=== PATIENT | male | born 1950 | race Caucasian/White ===

== ENCOUNTER 2020-06-22 03:35 | Inpatient (IN) ==
[2020-06-22] MEDS ORDERED: ATROPINE 0.4 MG/1 ML VIAL IV ONE (03:44)
[2020-06-22] MEDS ORDERED: ATROPINE 0.4 MG/1 ML VIAL ONE (03:45)
[2020-06-22] MEDS ORDERED: ATROPINE 1 MG/10 ML SYRINGE IV STA (03:55)
[2020-06-22 04:02] LABS: Basophils # 0.1 10*3/uL (0.0-0.2); Basophils % 0.5 % (0.0-0.8); Eosinophils # 0.1 10*3/uL (0.0-0.87); Eosinophils % 0.9 % (0.00-10.9); Hematocrit 39.8 VOL% (42.0-52.0); Hemoglobin 12.8 GM/DL (14.0-18.0); Immature Granulocytes % 1.2 %; Immature Granulocytes Absolute 0.16 #; Lymphocytes # 1.2 10*3/uL (1.4-4.0); Lymphocytes % 8.7 % (21.2-54.2); Mean Corpuscular HGB Conc 32.2 GM/DL (32-36); Mean Corpuscular Volume 91.7 FL (87-102); Mean Platelet Volume 12.2 FL (9.6-12.0); Monocytes % 8.8 % (1.7-12.7); NRBC # 0.02 10*3/uL; Neutrophils % 79.9 % (38.7-73.9); Platelet Count 170 T/CUMM (130-400); Red Blood Count 4.34 MC/CUMM (3.8-5.5); Red Cell Distribution Width 14.3 % (9.3-17.3); White Blood Count 13.5 T/CUMM (4-12)
[2020-06-22] MEDS ORDERED: MORPHINE 4 MG/1 ML VIAL IV STA (04:06)
[2020-06-22] MEDS ORDERED: MIDAZOLAM 2 MG/2 ML VIAL IV STA (04:06)
[2020-06-22] MEDS ORDERED: ONDANSETRON 4 MG/2 ML VIAL IV STA (04:07)
[2020-06-22 04:09] LABS: INR 1.2; PT Patient Result 12.6 SECS (9.8-11.9)
[2020-06-22 04:41] LABS: Albumin 3.3 G/DL (3.4-5.0); Bilirubin,Total 0.5 MG/DL (0.2-1.0); Calcium 8.8 MG/DL (8.5-10.1); Osmolality,Calculated 296.5 MOS/KG (273-304); Potassium 5.9 MMOL/L (3.5-5.1); Total Protein 6.5 G/DL (6.4-8.3)
[2020-06-22] MEDS ORDERED: DEXTROSE 50% 25 GM/50 ML VIAL IV STA (05:09)
[2020-06-22] MEDS ORDERED: SODIUM CHLORIDE 0.9% 1,000 ML IV STA (05:10)
[2020-06-22] MEDS ORDERED: INSULIN REGULAR 100 UNIT/ML IV STA (05:10)
[2020-06-22] MEDS ORDERED: CALCIUM GLUCONATE 1,000 MG in SODIUM CHLORIDE 0.9% 100 ML IV ONE ×3 (05:10→10:00)
[2020-06-22] MEDS ORDERED: DEXTROSE 50% 25 GM/50 ML SYRINGE IV ONE (05:17)
[2020-06-22] MEDS ORDERED: LIDOCAINE 1% 20 ML VIAL ONE (05:57)
[2020-06-22] MEDS ORDERED: MIDAZOLAM 2 MG/2 ML VIAL ONE (06:06)
[2020-06-22] MEDS ORDERED: fentaNYL 100 MCG/2 ML VIAL ONE (06:07)
[2020-06-22] MEDS ORDERED: GLUCAGON 1 MG VIAL IM PRN ×2 (06:48→09:29)
[2020-06-22] MEDS ORDERED: MAGNESIUM SULF RIDER 4 GM in PREMIX 1 EACH IV PRN (06:48)
[2020-06-22] MEDS ORDERED: DEXTROSE 50% 25 GM/50 ML VIAL IV PRN ×2 (06:48→09:29)
[2020-06-22] MEDS ORDERED: MAGNESIUM SULF RIDER 2 GM in PREMIX 1 EACH IV PRN (06:48)
[2020-06-22] MEDS: SODIUM CHLORIDE 0.9% 1,000 ML IV SCH ×5 (07:44→19:39)
[2020-06-22 09:07] LABS: Troponin I < 0.015 NG/ML (0.00-0.045)
[2020-06-22] MEDS ORDERED: SODIUM POLYSTYRENE SULFATE 15 GM/60 ML BOTTLE PO ONE (09:15)
[2020-06-22] MEDS ORDERED: ALBUTEROL 2.5 MG/3 ML NEB RESP TX ONE (09:16)
[2020-06-22] MEDS ORDERED: ALBUTEROL 2.5 MG/3 ML NEB RESP TX PRN (09:19)
[2020-06-22] MEDS: PANTOPRAZOLE 40 MG VIAL IV SCH (10:43)
[2020-06-22] MEDS: ENOXAPARIN 30 MG/0.3 ML SYRINGE SUBCUT SCH (10:43)
[2020-06-22] MEDS: INSULIN LISPRO 100 UNIT/ML SUBCUT SCH ×3 (10:55→20:40)
[2020-06-22 12:04] LABS: Hepatitis B Core IgM Quant 0.09 Index; Hepatitis B Surface Ag Quant < 0.10 Index; Hepatitis B Surface Ag Result Negative (Negative); Hepatitis C Virus Ab Quant < 0.02 Index; Hepatitis C Virus Ab Result Negative (Negative)
[2020-06-22 15:06] LABS: Troponin I < 0.015 NG/ML (0.00-0.045)
[2020-06-22 16:27] LABS: Bacteria,Urine Occasional /HPF (Few); Bilirubin,Urine Negative (Negative); Blood, Urine Negative (Negative); Glucose,Urine (UA) Negative (Negative); Hyaline Casts,Urine 4 /LPF (0-3); Ketones,Urine Negative (Negative); Mucus,Urine Occasional /LPF (Occasional); Nitrite,Urine Negative (Negative); Protein,Urine Negative; RBC,Urine 2 /HPF (0-4); Urine Appearance CLEAR (Clear); Urine Color Yellow (Yellow); Urine Specific Gravity 1.015 (1.001-1.035); Urine Urobilinogen < 2.0 EU/DL (0.2-1.0); WBC,Urine 5 /HPF (0-6)
[2020-06-22 18:38] LABS: Calcium 8.4 MG/DL (8.5-10.1); Osmolality,Calculated 293.4 MOS/KG (273-304); Potassium 4.6 MMOL/L (3.5-5.1)
[2020-06-23 00:03] LABS: Troponin I < 0.015 NG/ML (0.00-0.045)
[2020-06-23] MEDS: SODIUM CHLORIDE 0.9% 1,000 ML IV SCH ×3 (04:19→07:21)
[2020-06-23 04:42] LABS: Basophils # 0.1 10*3/uL (0.0-0.2); Basophils % 0.6 % (0.0-0.8); Eosinophils # 0.3 10*3/uL (0.0-0.87); Eosinophils % 3.2 % (0.00-10.9); Hematocrit 35.9 VOL% (42.0-52.0); Hemoglobin 11.5 GM/DL (14.0-18.0); Immature Granulocytes % 0.7 %; Immature Granulocytes Absolute 0.06 #; Lymphocytes # 0.9 10*3/uL (1.4-4.0); Mean Corpuscular Volume 92.3 FL (87-102); Mean Platelet Volume 11.9 FL (9.6-12.0); NRBC # 0.02 10*3/uL; Neutrophils % 72.5 % (38.7-73.9); Platelet Count 141 T/CUMM (130-400); Red Blood Count 3.89 MC/CUMM (3.8-5.5); Red Cell Distribution Width 14.1 % (9.3-17.3)
[2020-06-23 04:54] LABS: INR 1.2; PT Patient Result 12.4 SECS (9.8-11.9)
[2020-06-23 05:00] LABS: Alanine Aminotransferase 608 U/L (16-61); Albumin 2.6 G/DL (3.4-5.0); Alkaline Phosphatase 73 U/L (45-117); Aspartate Amino Transferase 271 U/L (0-37); Bilirubin,Total < 0.39 MG/DL (0.2-1.0); Blood Urea Nitrogen 47 MG/DL (7-18); Calcium 8.1 MG/DL (8.5-10.1); Carbon Dioxide 25 MMOL/L (21-32); Estimated Glom Filtration Rate 33 ML/MIN; Glucose 104 MG/DL (74-106); Osmolality,Calculated 286.7 MOS/KG (273-304); Potassium 4.8 MMOL/L (3.5-5.1); Sodium 138 MMOL/L (136-145); Total Protein 5.9 G/DL (6.4-8.3)
[2020-06-23 05:07] LABS: Alanine Aminotransferase 608 U/L (16-61); Albumin 2.6 G/DL (3.4-5.0); Alkaline Phosphatase 75 U/L (45-117); Aspartate Amino Transferase 269 U/L (0-37); Bilirubin,Direct < 0.100 MG/DL (0.0-0.20); Bilirubin,Indirect 0.3 MG/DL (0.0-1.0); Bilirubin,Total < 0.39 MG/DL (0.2-1.0); Blood Urea Nitrogen 46 MG/DL (7-18); Calcium 8.1 MG/DL (8.5-10.1); Carbon Dioxide 25 MMOL/L (21-32); Estimated Glom Filtration Rate 33 ML/MIN; Glucose 101 MG/DL (74-106); HDL Cholesterol 24 MG/DL (40-60); Osmolality,Calculated 294.1 MOS/KG (273-304); Potassium 4.8 MMOL/L (3.5-5.1); Risk Ratio 4.13; Sodium 142 MMOL/L (136-145); Total Protein 5.9 G/DL (6.4-8.3); Triglycerides 118 MG/DL (2-150); VLDL CHOLESTEROL 23.6 MG/DL
[2020-06-23] MEDS: INSULIN LISPRO 100 UNIT/ML SUBCUT SCH ×4 (08:09→20:10)
[2020-06-23] MEDS: ASPIRIN EC 81 MG TABLET PO SCH (08:59)
[2020-06-23] MEDS: PANTOPRAZOLE 40 MG VIAL IV SCH (08:59)
[2020-06-23] MEDS: MAGNESIUM CHLORIDE 64 MG TABLET PO SCH (08:59)
[2020-06-23] MEDS ORDERED: NAPROXEN 500 MG TABLET PO SCH (09:00)
[2020-06-23] MEDS: ENOXAPARIN 30 MG/0.3 ML SYRINGE SUBCUT SCH (10:21)
[2020-06-23] MEDS: ASCORBIC ACID 500 MG TABLET PO SCH (20:08)
[2020-06-23] MEDS: CYCLOBENZAPRINE 10 MG TABLET PO SCH (20:09)
[2020-06-23] MEDS ORDERED: ASCORBIC ACID 500 MG TABLET PO SCH (21:00)
[2020-06-24 06:01] LABS: Basophils % 0.6 % (0.0-0.8); Eosinophils # 0.4 10*3/uL (0.0-0.87); Eosinophils % 5.6 % (0.00-10.9); Hematocrit 38.2 VOL% (42.0-52.0); Hemoglobin 12.2 GM/DL (14.0-18.0); Immature Granulocytes % 1.1 %; Immature Granulocytes Absolute 0.08 #; Lymphocytes % 14.5 % (21.2-54.2); Mean Corpuscular HGB Conc 31.9 GM/DL (32-36); Mean Corpuscular Volume 92.9 FL (87-102); Mean Platelet Volume 12.3 FL (9.6-12.0); Monocytes % 14.7 % (1.7-12.7); Neutrophils % 63.5 % (38.7-73.9); Platelet Count 144 T/CUMM (130-400); Red Blood Count 4.11 MC/CUMM (3.8-5.5); Red Cell Distribution Width 13.8 % (9.3-17.3)
[2020-06-24 06:24] LABS: Calcium 8.6 MG/DL (8.5-10.1); Osmolality,Calculated 285.4 MOS/KG (273-304); Potassium 4.6 MMOL/L (3.5-5.1)
[2020-06-24] MEDS: INSULIN LISPRO 100 UNIT/ML SUBCUT SCH ×4 (06:32→21:48)
[2020-06-24] MEDS: MAGNESIUM CHLORIDE 64 MG TABLET PO SCH (08:43)
[2020-06-24] MEDS: ASCORBIC ACID 500 MG TABLET PO SCH ×2 (08:44→21:36)
[2020-06-24] MEDS: ASPIRIN EC 81 MG TABLET PO SCH (08:45)
[2020-06-24] MEDS: PANTOPRAZOLE 40 MG VIAL IV SCH (08:46)
[2020-06-24] MEDS: PANTOPRAZOLE 40 MG TABLET PO SCH (08:50)
[2020-06-24] MEDS ORDERED: EXENATIDE MICROSPHERES 2 MG/0.65 ML SUBCUT SCH (09:00)
[2020-06-24] MEDS: ENOXAPARIN 30 MG/0.3 ML SYRINGE SUBCUT SCH (09:06)
[2020-06-24] MEDS: amLODIPine 10 MG TABLET PO SCH (14:26)
[2020-06-24] MEDS: CYCLOBENZAPRINE 10 MG TABLET PO SCH (21:48)
[2020-06-25 08:12] LABS: Basophils # 0.1 10*3/uL (0.0-0.2); Basophils % 0.6 % (0.0-0.8); Eosinophils # 0.5 10*3/uL (0.0-0.87); Eosinophils % 5.8 % (0.00-10.9); Hematocrit 40.6 VOL% (42.0-52.0); Hemoglobin 13.2 GM/DL (14.0-18.0); Immature Granulocytes % 0.8 %; Immature Granulocytes Absolute 0.06 #; Lymphocytes % 12.2 % (21.2-54.2); Mean Corpuscular HGB Conc 32.5 GM/DL (32-36); Mean Corpuscular Volume 90.2 FL (87-102); Mean Platelet Volume 11.4 FL (9.6-12.0); Monocytes % 17.1 % (1.7-12.7); Neutrophils % 63.5 % (38.7-73.9); Platelet Count 184 T/CUMM (130-400); Red Cell Distribution Width 13.9 % (9.3-17.3); White Blood Count 7.8 T/CUMM (4-12)
[2020-06-25 08:30] LABS: Calcium 8.9 MG/DL (8.5-10.1); Potassium 4.5 MMOL/L (3.5-5.1)
[2020-06-25 08:39] LABS: Eosinophils 10 % (0-10); Hypochromasia 1+; Lymphocytes 12 % (20-55); Microcytosis 1+; Ovalocytes Slight; Platelet Estimate Adequate; Segmented Neutrophils 55 % (50-85); Total Cells Counted 100
[2020-06-25] MEDS: INSULIN LISPRO 100 UNIT/ML SUBCUT SCH ×2 (08:50→12:55)
[2020-06-25] MEDS: ASCORBIC ACID 500 MG TABLET PO SCH (09:28)
[2020-06-25] MEDS: ASPIRIN EC 81 MG TABLET PO SCH (09:28)
[2020-06-25] MEDS: MAGNESIUM CHLORIDE 64 MG TABLET PO SCH (09:28)
[2020-06-25] MEDS: PANTOPRAZOLE 40 MG TABLET PO SCH (09:28)
[2020-06-25] MEDS: amLODIPine 10 MG TABLET PO SCH (09:28)
[2020-06-25] MEDS: ENOXAPARIN 30 MG/0.3 ML SYRINGE SUBCUT SCH (09:29)
[2020-06-25] MEDS ORDERED: METOPROLOL SUCCINATE XL 25 MG TABLET PO SCH (10:00)
[2020-06-25] MEDS ORDERED: DILTIAZEM CD 120 MG CAPSULE PO SCH (10:30)
[2020-06-25 12:28] VITALS: BP 145/79
== END 2020-06-25 15:33 | disposition home health service (06) | DRG 260 ==
LOC: N.ED 03:35 → N.ICU 06:00 → SUATTDRO 06:10 → N.EDINP 06:10 → N.ICU 06:48 → N.TELES 06-24 18:23
PROVIDERS: ADMIT Internal Medicine Cardiovascular Disease; ATTEND Internal Medicine